=== PATIENT | male | born 2000 | race African-American/Black ===

== ENCOUNTER 2023-03-30 05:31 | Emergency (ER) | payer SELFPAY ==
[2023-03-30] MEDS: LORazepam 1 MG Tab PO ONE (06:22)
[2023-03-30 07:42] LABS: BLOOD UREA NITROGEN,BUN 13 mg/dL (7-18); BUN/CREATININE RATIO 10.8 (9-20); CALCIUM 9.6 mg/dL (8.6-10.2); CARBON DIOXIDE,CO2 30 mmol/L (21-32); CHLORIDE,CL 103 mmol/L (100-110); CREATININE 1.2 mg/dL (0.70-1.30); EST CRCL DRUG DOSING (CG) 92.92 mL/min; ESTIMATED GFR 88 mL/min (>60); GLUCOSE RANDOM 111 mg/dL (80-116); POTASSIUM,K 4.5 mmol/L (3.5-5.3); SODIUM,NA 139 mmol/L (135-145)
== END 2023-03-30 08:15 | disposition home or self-care (01) ==
LOC: FB.ED 05:31
DX: R00.2 Palpitations (principal); T43.615A Adverse effect of caffeine, initial encounter
CPT/HCPCS: 36415; 80048; 84484; 93005; 99285; A9270